=== PATIENT | male | born 1955 | race Caucasian/White ===

== ENCOUNTER 2016-12-27 08:37 | Emergency (ER) | payer BC ==
[2016-12-27 08:48] VITALS: BP 138/86
--- NOTE | 2016-12-27 09:55 | UC ---
Eye Complaint HPI - HPI Summary HPI Summary: WOKE UP THIS MORNING WITH LEFT EYE ITCHY AND CRUSTED. HAS HAD URI SX FOR THE PAST FEW DAYS. NO VISUAL DISTURBANCES. NO FB SENSATION OR PAIN WITH EOM. NO SOTO, FEVER OR NAUSEA. - History of Current Complaint Chief Complaint: UCEye Stated Complaint: EYE ISSUE Time Seen by Provider: 12/27/16 09:29 Hx Obtained From: Patient Onset/Duration: Sudden Onset, Lasting Hours, Still Present Timing: Constant Severity Initially: Moderate Severity Currently: Moderate Pain Intensity: 0 Pain Scale Used: 0-10 Numeric Location of Injury: Conjunctiva - LEFT Aggravating Factor(s): Nothing Alleviating Factor(s): Nothing Associated Signs And Symptoms: Positive: Drainage (Clear). Negative: Photophobia, Drainage (Purulent), Vision Impairment Bilateral, Vision Impairment Right, Vision Impairment Left, Fever - Allergies/Home Medications Allergies/Adverse Reactions: Allergies Allergy/AdvReac Type Severity Reaction Status Date / Time Meperidine [From Demerol HCl] Allergy Anaphylatic Verified 12/27/16 08:43 Shock Home Medications: Home Medications Ranitidine HCl [Zantac 150 Maximum Streng] 150 mg PO BID 12/27/16 [History Confirmed 12/27/16] PMH/Surg Hx/FS Hx/Imm Hx Cardiovascular History: Hypertension Cancer History: Prostate Cancer - Surgical History Surgical History: Yes Surgery Procedure, Year, and Place: prostatectomy - Family History Known Family History: Positive: Cardiac Disease - Social History Alcohol Use: Rare Substance Use Type: None Smoking Status (MU): Never Smoked Tobacco Review of Systems Constitutional: Negative Eyes: Eye Redness ENT: Nasal Discharge Respiratory: Cough Cardiovascular: Negative Gastrointestinal: Negative All Other Systems Reviewed And Are Negative: Yes Physical Exam Triage Information Reviewed: Yes Appearance: Well-Appearing, No Pain Distress, Well-Nourished Vital Signs: Initial Vital Signs Temp 98.6 F 12/27/16 08:46 Pulse 79 12/27/16 08:46 Resp 16 12/27/16 08:46 BP 138/86 12/27/16 08:46 Pulse Ox 99 12/27/16 08:46 Vital Signs Reviewed: Yes Eyes: Positive: Conjunctiva Inflamed - LEFT. Negative: Discharge ENT: Positive: Hearing grossly normal Neck: Positive: Supple Respiratory: Positive: No respiratory distress, No accessory muscle use Cardiovascular: Positive: Pulses Normal Abdomen Description: Positive: Soft Musculoskeletal: Positive: No Edema Neurological: Positive: Alert Psychological: Positive: Age Appropriate Behavior Skin: Negative: rashes Eye Complaint Course/Dx - Differential Dx/Diagnosis Provider Diagnoses: LEFT EYE CONJUNCTIVITIS Discharge - Discharge Plan Condition: Stable Disposition: HOME Prescriptions: Ciprofloxacin 0.3% OPTH.VELMA* [Cipro 0.3% Opth*] 1 drop LEFT EYE Q4H #1 btl Patient Education Materials: Conjunctivitis (ED) Referrals: Percy Argueta MD [Primary Care Provider] - If Needed
== END 2016-12-27 09:55 | disposition home or self-care (01) ==
LOC: UCEAST 08:37
DX: H10.9 Unspecified conjunctivitis (principal); I10 Essential (primary) hypertension
CPT/HCPCS: 99212; G0463

== ENCOUNTER 2018-05-11 11:45 | Emergency (ER) | payer BC ==
[2018-05-11 11:54] VITALS: BP 127/78
--- NOTE | 2018-05-11 13:31 | UC ---
Laceration HPI - HPI Summary HPI Summary: 63-year-old male presents with laceration to the distal palmar aspect of his left middle finger. States occurred this morning while using a utility knife to break down cardboard boxes. Bleeding was controlled with direct pressure prior to arrival. States his tetanus is up-to-date. - History Of Current Complaint Chief Complaint: UCLaceration Stated Complaint: HAND LACERATION Time Seen by Provider: 05/11/18 13:08 Hx Obtained From: Patient Laceration Location: Hand - see HPI Pain Intensity: 0 Hands: 1 - 1 cm superficial C-shaped partial avulsion to the pad of the distal left middle finger. No finger nail involvement. CMS intact. Related History: Dominant Hand Right - Allergies/Home Medications Allergies/Adverse Reactions: Allergies Allergy/AdvReac Type Severity Reaction Status Date / Time meperidine [From Demerol] Allergy Anaphylatic Verified 05/11/18 11:54 Shock Home Medications: Home Medications Aspirin 81 mg PO 05/11/18 [History] PMH/Surg Hx/FS Hx/Imm Hx Cardiovascular History: Hypertension GI/ History: Gastroesophageal Reflux - Surgical History Surgical History: Yes Surgery Procedure, Year, and Place: prostatectomy - Family History Known Family History: Positive: Cardiac Disease - Social History Occupation: Employed Full-time Lives: With Family Alcohol Use: Occasionally Substance Use Type: None Smoking Status (MU): Never Smoked Tobacco - Immunization History Vaccination Up to Date: Yes Review of Systems Constitutional: Negative Skin: Other - See HPI Motor: Negative Neurovascular: Negative Musculoskeletal: Negative Is Patient Immunocompromised?: No All Other Systems Reviewed And Are Negative: Yes Physical Exam Triage Information Reviewed: Yes Appearance: Well-Appearing, No Pain Distress, Well-Nourished Vital Signs: Initial Vital Signs Temp 97.6 F 05/11/18 11:49 Pulse 74 05/11/18 11:49 Resp 18 05/11/18 11:49 BP 127/78 05/11/18 11:49 Pulse Ox 98 05/11/18 11:49 Respiratory: Positive: No respiratory distress Cardiovascular: Positive: Pulses Normal, Brisk Capillary Refill Neurological: Positive: Alert, Other: - Sensation intact Skin: Positive: significant lesion(s) - See diagram Laceration Repair - Laceration Repair 1 Description: Linear - Linear C-shaped partial avulsion. See diagram. Laceration Size After Repair: Length (cm) - 1 cm Contamination/FB Removal: None Modified For Repair: No Cleansing Completed Via Routine Prep: Yes Irrigation With Pressure Irrigation Device: Yes Closure Material: Skin Adhesive, SteriStrips - Two 1/4 inch Steri-Strips applied Suture Of: Skin Laceration Course/Dx - Course/Dx Course Of Treatment: 63 year old male with superficial partial avulsion to the pad of the distal left middle finger. Tetanus up to date. Wound cleansed and closed using skin adhesive and Steri-strips. Wound care and warning symtoms reviewed with patient. Verbalizes understanding and agrees with POC. - Differential Dx - Laceration/Wound Provider Diagnoses: partial avulsion left middle finger Discharge - Sign-Out/Discharge Documenting (check all that apply): Patient Departure All imaging exams completed and their final reports reviewed: No Studies - Discharge Plan Condition: Stable Disposition: HOME Patient Education Materials: Finger Laceration (ED) Referrals: Matt ABBOTT,Janice Chau [Primary Care Provider] - If Needed Additional Instructions: The laceration to the tip of your left middle finger was repaired today using a skin adhesive and Steri-Strips. Leave the dressing that was applied in the clinic today in place for the next 24 hours. Do not get this wet. You do not want to get the skin adhesive wet for the next 24 hours. After 24 hours you may go ahead and shower and wash her hands is normal. The skin adhesive we will slowly wear off over the next several days. The Steri-Strips will slowly peel from the ends. You may trimly these ends if needed but do not pull the Steri-Strip off as this may reopen the wound. You should gently wash the injury with a mild soap and water at least once daily and cover with a dressing. The dressing should be changed every day or any time becomes wet or soiled. Do not apply any ointments, lotions, or creams to the wound as this may dissolve the skin adhesive that was used. You may use [id number] pain medication such as acetaminophen (Tylenol) according to directions as needed for pain. Watch for signs of infection including fever greater than 100.5 F, redness that spreads, swelling of the finger, or any numbness or tingling in the finger. Seek immediate medical attention should any of these occur. - Billing Disposition and Condition Condition: STABLE Disposition: Home
== END 2018-05-11 13:35 | disposition home or self-care (01) ==
LOC: UCEAST 11:45
DX: S61.213A Laceration without foreign body of left middle finger without damage to nail, initial encounter (principal); W26.0XXA Contact with knife, initial encounter; Y93.89 Activity, other specified; Y92.9 Unspecified place or not applicable; Z88.5 Allergy status to narcotic agent
CPT/HCPCS: 12041; 99211; G0463

== ENCOUNTER 2018-05-12 16:22 | Emergency (ER) | payer BC ==
[2018-05-12 16:29] VITALS: BP 148/86
--- NOTE | 2018-05-12 16:31 | UC ---
HPI Wound/Suture Re-check - HPI Summary HPI Summary: 63 y/o male presents to the urgent care request wound recheck s/p avulsion laceration of his left middle finger w/ an utility knife yesterday morning. Some streri-strips were placed here at the clinic yesterday to close laceration. He is concerned that the steri strips are covered w/ some blood. Pt denies infection, pain, fever, swelling, numbness or tingling sensation over the finger, he can move finger w/o any problem. - History Of Current Complaint Chief Complaint: UCWounds Stated Complaint: WOUND RECHECK Time Seen by Provider: 05/12/18 16:30 Hx Obtained From: Patient Onset/Duration: Sudden Onset, Lasting Days - 1 day, Still Present Severity: Mild Pain Intensity: 0 Pain Scale Used: 0-10 Numeric Surgery Date: 05/11/18 - closed w/ steri-strips - Allergies/Home Medications Allergies/Adverse Reactions: Allergies Allergy/AdvReac Type Severity Reaction Status Date / Time meperidine [From Demerol] Allergy Anaphylatic Verified 05/12/18 16:29 Shock PMH/Surg Hx/FS Hx/Imm Hx Previously Healthy: Yes Cardiovascular History: Hypertension - Surgical History Surgical History: Yes Surgery Procedure, Year, and Place: prostatectomy - Family History Known Family History: Positive: Cardiac Disease, Hypertension - Social History Occupation: Employed Full-time Lives: With Family Alcohol Use: Occasionally Substance Use Type: None Smoking Status (MU): Never Smoked Tobacco - Immunization History Vaccination Up to Date: Yes Review of Systems Constitutional: Negative Skin: Other - laceration of left middle finger s/p steri-strip closure Eyes: Negative ENT: Negative Respiratory: Negative Cardiovascular: Negative Gastrointestinal: Negative Genitourinary: Negative Motor: Negative Neurovascular: Negative Musculoskeletal: Negative Neurological: Negative Psychological: Negative Is Patient Immunocompromised?: No All Other Systems Reviewed And Are Negative: Yes Physical Exam Triage Information Reviewed: Yes Appearance: Well-Appearing, No Pain Distress, Well-Nourished Vital Signs: Initial Vital Signs Temp 97.8 F 05/12/18 16:26 Pulse 86 05/12/18 16:26 Resp 18 05/12/18 16:26 BP 148/86 05/12/18 16:26 Pulse Ox 99 05/12/18 16:26 Vital Signs Reviewed: Yes Eye Exam: Normal ENT Exam: Normal Dental Exam: Normal Neck exam: Normal Respiratory Exam: Normal Cardiovascular Exam: Normal Abdominal Exam: Normal Bowel Sounds: Positive: Present Musculoskeletal Exam: Normal Neurological Exam: Normal Psychological Exam: Normal Skin: Positive: Other - left middle distal 3rd phalanx w/ a superficial laceration healing well abou 1.0cm in size closed w/ 3 steri-strips w/ some dry blood on them, no erythema, no swelling, no drainage, FROM of left middle finger. sensation intact, capillary refill WNL pulses WNL. Course/Dx - Course Course Of Treatment: 63 y/o male presents to the urgent care request wound recheck s/p avulsion laceration of his left middle finger w/ an utility knife yesterday morning. Some streri-strips were placed here at the clinic yesterday to close laceration. He is concerned that the steri strips are covered w/ some blood. Pt denies infection, pain, fever, swelling, numbness or tingling sensation over the finger, he can move finger w/o any problem. Hx obtained. Wound healing well with 3 steri strips covered w/ dry blood. pt request change of strei strips. wound good granulation over, non tender to palpation, 4 new strei-strips placed over wound. Pt tolerated well procedure. wound cover with sterile gauze. Pt advised if redness, pain or fever develops to return to the urgent care or f/u with PCP in 3 days for further treatment. Pt's BP elevated today, advised to decrease salt in diet and monitor BP, and f/u with PCP. Pt understood and agreed with plan of care - Differential Dx - Laceration/Wound Differential Diagnoses: Healing Wound, Suture Removal Provider Diagnoses: 1- Wound recheck s/p superficial laceration of left middle finger Discharge - Sign-Out/Discharge Documenting (check all that apply): Patient Departure - d/c home All imaging exams completed and their final reports reviewed: No Studies - Discharge Plan Condition: Stable Disposition: HOME Patient Education Materials: Acute Wound Care (ED), Low-Sodium Diet (ED), Steristrips (ED) Referrals: Janice Alicea [Primary Care Provider] - If Needed Additional Instructions: 1-Please apply topical antibiotic over the wound after steri-strips fall off to prevent infection. Keep wound clean and dry 2-Take Ibuprofen or Tylenol PO q6-8hrs prn after meals if you develop pain or swelling. 3- If you develop fever or redness around your finger despite the antibiotic please return to the Urgent care or f/u w/ your PCP for further management. 4-Your BP is elevated today. please decrease salt in your diet, monitor BP and if it continues to be elevated please f/u with your PCP for further management - Billing Disposition and Condition Condition: STABLE Disposition: Home
== END 2018-05-12 17:00 | disposition home or self-care (01) ==
LOC: UCEAST 16:22
DX: S61.213D Laceration without foreign body of left middle finger without damage to nail, subsequent encounter (principal); W26.0XXD Contact with knife, subsequent encounter; Z88.5 Allergy status to narcotic agent
CPT/HCPCS: 99211; G0463